=== PATIENT | female | born 1950 | race Caucasian/White ===

== ENCOUNTER 2018-07-31 06:01 | Inpatient (IN) | payer OTHER ==
[~2018-07-31] VITALS: Ht 165.1 cm; Wt 68.9 kg
[2018-07-31 06:15] VITALS: Ht 165.1 cm; Wt 68.9 kg
[2018-07-31 07:23] LABS: PLATELET COUNT 341 x10^3mcL (130-400); RED CELL DISTRIBUTION WIDTH 12.6 % (11.5-14.5)
[2018-07-31 07:34] LABS: CALCIUM 9.4 mg/dL (8.5-10.1); CARBON DIOXIDE 24.8 mmol/L (21-32); CHLORIDE SERUM 100 mmol/L (98-107); CREATININE SERUM 0.9 mg/dL (0.6-1.0); GFR1 > 60 mL/min; GLUCOSE SERUM 200 mg/dL (74-106); POTASSIUM SERUM 3.4 mmol/L (3.5-5.1); SODIUM SERUM 135 mmol/L (136-145)
[2018-07-31 07:40] LABS: ALBUMIN 3.4 g/dL (3.4-5.0); ALKALINE PHOSPHATASE 320 U/L (46-116); ALT/SGPT 168 U/L (14-59); AST/SGOT 127 U/L (15-37); BILIRUBIN TOTAL 3.81 mg/dL (0.20-1.00); TOTAL PROTEIN, SERUM 7.7 g/dL (6.4-8.2)
[2018-07-31 07:44] LABS: AMYLASE 1002 U/L (25-115)
[2018-07-31 07:56] LABS: T4(THYROXINE) 12.1 ug/dL (4.7-13.3)
[2018-07-31 08:29] LABS: LIPASE 15355 IU/L (73-393)
[2018-07-31 09:19] LABS: microscopic required? YES; urine erythrocyte TRACE (NEGATIVE)
[2018-07-31 12:10] VITALS: BP 130/62
[2018-07-31 12:15] LABS: MONOCYTE 1 % (0-7); SEGMENTED NEUTROPHILS 95 % (37-75)
[2018-07-31 12:16] LABS: BAND NEUTROPHIL 3 % (0-10); BASOPHIL 0 % (0-2); rbc morphology (normal/abnorm) ABNORMAL (NORMAL)
[2018-07-31 12:17] LABS: PLATELET MORPHOLOGY PLATELETS NORMAL
[2018-07-31 16:28] VITALS: BP 143/61
[2018-08-01 05:42] VITALS: BP 137/66
[2018-08-01 06:37] LABS: BASOPHIL % 0.1 % (0-2); PLATELET COUNT 245 x10^3mcL (130-400); RED CELL DISTRIBUTION WIDTH 13.9 % (11.5-14.5)
[2018-08-01 07:00] LABS: ALKALINE PHOSPHATASE 230 U/L (46-116); ALT/SGPT 86 U/L (14-59); AST/SGOT 49 U/L (15-37); BILIRUBIN DIRECT 4.07 mg/dL (0.0-0.2); BILIRUBIN TOTAL 4.52 mg/dL (0.20-1.00); CALCIUM 8.7 mg/dL (8.5-10.1); CARBON DIOXIDE 25.3 mmol/L (21-32); CHLORIDE SERUM 107 mmol/L (98-107); CREATININE SERUM 0.9 mg/dL (0.6-1.0); GFR1 > 60 mL/min; GLUCOSE SERUM 94 mg/dL (74-106); LIPASE 494 IU/L (73-393); MAGNESIUM 1.9 mg/dL (1.8-2.4); PHOSPHOROUS 3.1 mg/dL (2.5-4.9); POTASSIUM SERUM 3.4 mmol/L (3.5-5.1); SODIUM SERUM 140 mmol/L (136-145)
[2018-08-01 07:01] LABS: ALBUMIN 2.4 g/dL (3.4-5.0); TOTAL PROTEIN, SERUM 5.7 g/dL (6.4-8.2)
[2018-08-01 09:20] VITALS: BP 156/60
[2018-08-01 16:02] VITALS: BP 172/64
[2018-08-01 19:15] VITALS: BP 133/52
[2018-08-01 20:15] VITALS: BP 160/77
[2018-08-02] VITALS (8 sets, daily range): BP systolic 102–185; BP diastolic 45–72
[2018-08-02 11:05] LABS: BASOPHIL % 0.6 % (0-2); PLATELET COUNT 266 x10^3mcL (130-400); RED CELL DISTRIBUTION WIDTH 13.6 % (11.5-14.5)
[2018-08-02 11:07] LABS: ALKALINE PHOSPHATASE 263 U/L (46-116); ALT/SGPT 99 U/L (14-59); AST/SGOT 60 U/L (15-37); BILIRUBIN DIRECT 3.71 mg/dL (0.0-0.2); BILIRUBIN TOTAL 4.1 mg/dL (0.20-1.00); CALCIUM 9.2 mg/dL (8.5-10.1); CARBON DIOXIDE 28.4 mmol/L (21-32); CHLORIDE SERUM 108 mmol/L (98-107); CREATININE SERUM 0.9 mg/dL (0.6-1.0); GFR1 > 60 mL/min; GLUCOSE SERUM 123 mg/dL (74-106); POTASSIUM SERUM 3.9 mmol/L (3.5-5.1); SODIUM SERUM 143 mmol/L (136-145); TOTAL PROTEIN, SERUM 6.7 g/dL (6.4-8.2)
[2018-08-02 11:11] LABS: ALBUMIN 2.7 g/dL (3.4-5.0)
== END 2018-08-02 20:45 | disposition home or self-care (01) | DRG 439 ==
LOC: ED 06:01 → MU 10:59
PROVIDERS: Emergency Medicine; Internal Medicine; Internal Medicine Gastroenterology; Internal Medicine Pulmonary Disease
PROC: 0FC98ZZ Extirpation of Matter from Common Bile Duct, Via Natural or Artificial Opening Endoscopic (ICD-10-PCS; principal; 2018-07-31 18:30)
PROC: BF101ZZ Fluoroscopy of Bile Ducts using Low Osmolar Contrast (ICD-10-PCS; 2018-07-31 18:30)
DX: K85.10 Biliary acute pancreatitis without necrosis or infection (principal); K80.51 Calculus of bile duct without cholangitis or cholecystitis with obstruction; K91.86 Retained cholelithiasis following cholecystectomy; I10 Essential (primary) hypertension; R74.0 Nonspecific elevation of levels of transaminase and lactic acid dehydrogenase [LDH]; Y83.6 Removal of other organ (partial) (total) as the cause of abnormal reaction of the patient, or of later complication, without mention of misadventure at the time of the procedure
CPT/HCPCS: 43262; C1769; C9113; J0295; J0360; J1610; J1940; J2405; J2543; J2704; J3010; J3480; J3490; J7030; J7050; J7120; Q0092; Q9967